=== PATIENT | male | born 1950 | race Caucasian/White ===

== ENCOUNTER 2024-02-14 09:17 | Outpatient (CLI) | payer MEDICARE, SELFPAY | END 2024-02-14 09:18 | disposition home or self-care (01) | PROVIDERS: Visit Provider Emergency Medicine | DX: I46.9 Cardiac arrest, cause unspecified (principal) | CPT/HCPCS: A0425; A0433 ==

== ENCOUNTER 2024-02-14 09:55 | Emergency (ER) | payer MEDICARE, SELFPAY ==
[2024-02-14] VITALS (12 sets, daily range): BP systolic 91–124; BP diastolic 62–83; PULSE 60–66; RESP 10–20; TEMP 35.9; O2SAT 85–88
--- NOTE | 2024-02-14 | CRLHL7_ITS ---
For Patients: As a result of the Century Cures Act, medical imaging exams and procedure reports are released immediately into your electronic medical record. You may view this report before your referring provider. If you have questions, please contact your health care provider. INDICATION: Code blue, intubation. TECHNIQUE: Chest, 2 supine views. COMPARISON: 11/12/2017. FINDINGS: Endotracheal tube terminates 7.1 cm above the anna. Advancement of 2-3 cm should be considered. No pneumothorax or pleural effusion. Bilateral ill-defined opacities, left greater than right. Mild prominence of the cardiac silhouette. Upper abdomen and osseous structures as imaged show no acute abnormality. IMPRESSION: 1. Endotracheal tube terminates 7.1 cm above the anna. Advancement of endotracheal tube by 2-3 cm should be considered. 2. Nsnj-[id number]-[id number]-right opacities concerning for edema, pneumonia or hemorrhage. Dictated by Kareem Thomas MD @ 02/14/2024 10:28:22 AM (Electronically Signed)
--- OUTSIDE RECORDS SUMMARY | 2024-02-14 09:58 | XMS_ITS | Clinical Summary ---
Author Organization [facility] Address [place], [place] [address] Care Team Providers Care Assembler Flexible Leads Name Role Phone Clinic, [facility] Primary Care Pr ovider Allergies Active Allergy Reactions Criticality Noted Date Comments Penicillin V Potassium Rash Medium 12/23/2018 Medications methotrexate (RHEUMATREX) 2.5 mg tablet Take 4 tablets by mouth once weekly. Thursday 0 12/23/2018 Active rivaroxaban (XARELTO) 10 mg tablet Patient unsure of dosing, will update next time 0 12/23/2018 Active triamterene-hyd rochlorothiazid e, 37.5-25 mg, (DYAZIDE) 37.5-25 mg capsule Patient unsure of dosing; will update next time 0 12/23/2018 Active allopurinol (ZYLOPRIM) 100 mg tablet Patient unsure of exact dosing and will update 0 12/23/2018 Active cholecalciferol (VITAMIN D) 1,000 unit capsule Take 1 capsule by mouth once daily. 0 12/23/2018 Active azithromycin (ZITHROMAX Z-LIZ) 250 mg tabletIndicatio ns:Cough Take 500 mg (2 tabs) by mouth on day 1, then 250 mg (1 tab) daily for days 2-5. 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 Gender Identity Not on file Sexual Orientation Not on file Obstetrics History Last Filed Vital Signs Vital Sign Reading Time Taken Comments Blood Pressure 131/75 12/23/2018 3:05 PM PRETZEL TWISTING MACHINE OPERATOR Pulse 93 12/23/2018 3:05 PM PRETZEL TWISTING MACHINE OPERATOR Temperature 37.1 C (98.7 F) 12/23/2018 3:05 PM PRETZEL TWISTING MACHINE OPERATOR Respiratory Rate - - Oxygen Saturation 96% 12/23/2018 3:05 PM PRETZEL TWISTING MACHINE OPERATOR Inhaled Oxygen Concentration - - Weight 86.6 kg (190 lb 14.4 oz) 12/23/2018 3:05 PM PRETZEL TWISTING MACHINE OPERATOR Height 178.5 cm (5' 10.28) 12/23/2018 3:[address] Body Mass Index 27.18 12/23/2018 3:05 PM PRETZEL TWISTING MACHINE OPERATOR Plan of Treatment Health Maintenance Due Date Last Done Comments Tdap 01/01/1960 Depression screening for age 12+ 1960 Hepatitis C screening for age 18-79 1966 Tetanus booster 1968 Colonoscopy through age 75 1993 Lipids for age 45-75 1993 Zoster (shingles) series for age 50+ (1 of 2) 12/31/18 99 Medicare Wellness for age 65+ 2013 Pneumococcal series for age 50+ (1 of 1 - PCV) 014 BMI (ht and wt on same day) for age 18+ 12/24/2019 1 02/22/2018 COVID-19 vaccine series ( - 2023-25 season) 4 Influenza for age 65+ 10/11/2023 RSV vaccine for adults or pr egnancy (1 - 1-dose 75+ series) 01/01/2024 Insurance [employer] MEDICARE ADVANTAGE MR Care Teams Assembler Flexible Leads Relationship Specialty Start Date End Date Clinic, [facility] [address] [place] [address] PCP - General 03/04/11
[2024-02-14] MEDS: 0.9 % SODIUM CHLORIDE 1000 ml 1,000 ML IV ×3 (10:02→11:03)
[2024-02-14] MEDS: KETAMINE HCL 100 MG/ML inj IV ×2 (10:03→10:28)
[2024-02-14 10:15] LABS: Basophils Percent Auto 0.3 % (0.0-3.0); Eosinophils Percent Auto 0.4 % (0.0-7.0); Hemoglobin* 13.3 gm/dL (13.5-17.5); Immature Granulocytes Pct Auto 4.3 %; Lymphocytes Percent Auto 38.1 % (20-44); Mean Corpuscular HGB Conc 31 gm/dL (32-36); Mean Corpuscular Hemoglobin 35 pg (26-34); Mean Corpuscular Volume 114 fL (80-100); Monocytes Percent Auto 6.3 % (0.0-11.0); Neutrophils Percent Auto 50.6 % (42.0-72.0); Platelet Count* 170 K/uL (140-440); Red Blood Count 3.79 m/uL (4.30-5.90); White Blood Count* 11.28 K/uL (4.50-11.00)
[2024-02-14 10:18] LABS: HCO3 VBG 17 mmol/L (21-28); PO2 VBG 47.1 mmHG (25-47)
[2024-02-14 10:20] LABS: PCO2 VBG 65 mmHG (40-50); pH VBG 7.026 (7.32-7.43)
[2024-02-14] MEDS: fentaNYL 100 MCG/2 ML inj IV (10:20)
[2024-02-14 10:24] LABS: Glucose* 261 mg/dL (60-115); Slide Review Reflex No
--- OUTSIDE RECORDS SUMMARY | 2024-02-14 10:49 | XMS_ITS | Clinical Summary ---
Author Organization [facility] Address [place], [place] [address] Care Team Providers Care Stenotype Machine Operator Name Role Phone Clinic, [facility] Primary Care Pr ovider Allergies Active Allergy Reactions Criticality Noted Date Comments Penicillin V Potassium Rash Medium 12/23/2018 Medications methotrexate (RHEUMATREX) 2.5 mg tablet Take 4 tablets by mouth once weekly. Thursday 0 9 Suspended rivaroxaban (XARELTO) 10 mg tablet Patient unsure of dosing, will update next time 0 9 Suspended triamterene-hyd rochlorothiazid e, 37.5-25 mg, (DYAZIDE) 37.5-25 mg capsule Patient unsure of dosing; will update next time 0 9 Suspended allopurinol (ZYLOPRIM) 100 mg tablet Patient unsure of exact dosing and will update 0 9 Suspended cholecalciferol (VITAMIN D) 1,000 unit capsule Take 1 capsule by mouth once daily. 0 9 Suspended azithromycin (ZITHROMAX Z-LIZ) 250 mg tabletIndicatio ns:Cough Take 500 mg (2 tabs) by mouth on day 1, then 250 mg (1 tab) daily for days 2-5. 6 tablet 9 Suspended Active Problems No known active problems Encounters Date Type Department Care Team Description 02/14/2024 10:36 AM RESIDENT CARE AID - Present Hospital Encounter [facility] [address] [place], [place] [id number] Referring, Provider [facility] [place] Hospitalists Of Arrived from Last 3 Months Family History Medical History Relation Name Comments [...] on file Legal Sex Male 5:23 AM RESIDENT CARE AID Gender Identity Not on file Sexual Orientation Not on file Obstetrics History Last Filed Vital Signs Vital Sign Reading Time Taken Comments Blood Pressure 131/75 12/23/2018 3:05 PM RESIDENT CARE AID Pulse 93 12/23/2018 3:05 PM RESIDENT CARE AID Temperature 37.1 C (98.7 F) 12/23/2018 3:05 PM RESIDENT CARE AID Respiratory Rate - - Oxygen Saturation 96% 12/23/2018 3:05 PM RESIDENT CARE AID Inhaled Oxygen Concentration - - Weight 86.6 kg (190 lb 14.4 oz) 12/23/2018 3:05 PM RESIDENT CARE AID Height 178.5 cm (5' 10.28) 12/23/2018 3:[address] Body Mass Index 27.18 12/23/2018 3:05 PM RESIDENT CARE AID Plan of Treatment Upcoming Encounters Date Type Department Care Team (Late st Contact Info) Description 02/14/2024 10:36 AM RESIDENT CARE AID - Present Hospital Encounter [facility] [address] [place] [address] Referring, Provider Mirna Andrew Hospitalists Of . Arrived Health Maintenance Due Date Last Done Comments Tdap 01/01/1960 Depression screening for age 12+ 1960 Hepatitis C screening for age 18-79 1966 Tetanus booster 1968 Colonoscopy through age 75 1993 Lipids for age 45-75 1993 Pneumococcal series for age 50+ (1 of 1 - PCV) 1998 Zoster (shingles) series for age 50+ (1 of 2) 1998 Medicare Wellness for age 65+ 2013 BMI (ht and wt on same day) for age 18+ 12/24/2019 1 02/22/2018 COVID-19 vaccine series (2023-25 season) 2023 12/02/2023, 12/24/2022 Influenza for age 65+ 10/11/2023 RSV vaccine for adults or pr egnancy (1 - 1-dose 75+ series) 01/01/2024 Insurance [facility] MEDICARE ADVANTAGE MR ATTN A/P [address] [facility] [place] [address] Care Teams Stenotype Machine Operator Relationship Specialty Start Date End Date Clinic, [facility] [address] [place] [address] PCP - General 03/04/11
--- OUTSIDE RECORDS SUMMARY | 2024-02-14 10:50 | XMS_ITS | Continuity of Care Document ---
Author Name [facility]IN User [facility] Address Unknown Organization Unknown Address Unknown Encounters FILTER APPLIED:Only known Encounters with Admission Date within the last 5 years Encounter Location Admission Discharge Billing Code Concierge Manager Attender Outpatient [facility] PROVIDER REFERRING
[2024-02-14 10:51] LABS: Chloride* 116 mmol/L (96-114); Potassium* 3.7 mmol/L (3.6-5.1); Sodium* 140 mmol/L (135-149)
[2024-02-14 10:53] LABS: Creatinine* 0.9 mg/dL (0.5-1.5); Estimated Glomerular Filt Rate 89 ml/min
[2024-02-14 10:54] LABS: Blood Urea Nitrogen* 12 mg/dL (7-30); Carbon Dioxide* 15 mmol/L (20-32); Glucose* 215 mg/dL (60-115); INR 2.32 (0.91-1.10); Prothrombin Time 27.2 Seconds
[2024-02-14 10:55] LABS: Anion Gap 9 mEq/L (7-15); Calcium* 5.3 mg/dL (8.4-10.6)
[2024-02-14 11:06] LABS: Troponin I* 0.02 ng/mL (0.01-0.04)
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
[2024-02-14 11:37] LABS: Troponin, Point-of-Care* 0.02 ng/ml (0.01-0.04)
== END 2024-02-14 11:00 | disposition short-term general hospital (02) ==
LOC: ED 10:48
PROVIDERS: Emergency Provider Emergency Medicine
DX: I95.9 Hypotension, unspecified (principal); I46.9 Cardiac arrest, cause unspecified; J96.90 Respiratory failure, unspecified, unspecified whether with hypoxia or hypercapnia; E87.20 Acidosis, unspecified
CPT/HCPCS: 36415; 71045; 80048; 82803; 82947; 83605; 84484; 85025; 85610; 93005; 96365; 96374; 99285; 99291; J0171; J0612; J3010; J3490; J7030; J7050

== ENCOUNTER 2024-02-14 10:35 | Outpatient (CLI) | payer MEDICARE, SELFPAY | END 2024-02-14 10:36 | disposition home or self-care (01) | LOC: AMB 03-18 04:36 | PROVIDERS: Visit Provider Emergency Medicine | DX: I21.9 Acute myocardial infarction, unspecified (principal); I46.9 Cardiac arrest, cause unspecified | CPT/HCPCS: A0425; A0434 ==

== ENCOUNTER 2024-03-04 13:57 | Emergency (ER) | payer MEDICARE, SELFPAY ==
[2024-03-04] VITALS (11 sets, daily range): BP systolic 128–138; BP diastolic 70–80; PULSE 62–69; RESP 22–28; TEMP 36.3; O2SAT 95–99; BMI 26.8
--- NOTE | 2024-03-04 14:19 | CRLHL7_ITS ---
For Patients: As a result of the Century Cures Act, medical imaging exams and procedure reports are released immediately into your electronic medical record. You may view this report before your referring provider. If you have questions, please contact your health care provider. INDICATION: Cough. Shortness of breath. Pacemaker placement 1 week ago. TECHNIQUE: PA and lateral chest x-ray. COMPARISON: February 14, 2024. November 12, 2017. FINDINGS: Interval extubation. New left-sided dual chamber pacemaker with its lead tips in the right atrium and right ventricle. Overall heart size is within normal limits. Clear lungs without pneumothoraces, nodules, or infiltrates. Soft tissue prominence along the right hilum. This is new compared to November 12, 2017. A reactive lymph node is in the differential. Consider follow-up chest x-ray or chest CT within 4-6 weeks. Mild spurring of the lower thoracic spine. IMPRESSION : 1. New left-sided pacemaker. No pneumothorax. 2. No acute cardiopulmonary process identified. 3. Mildly prominent right hilum possibly related to an enlarged lymph node. Consider chest x-ray or chest CT within 4-6 weeks. Dictated by Torsten Swanson MD @ 03/04/2024 2:53:04 PM (Electronically Signed)
--- NOTE | 2024-03-04 15:54 | CRLHL7_ITS ---
For Patients: As a result of the Century Cures Act, medical imaging exams and procedure reports are released immediately into your electronic medical record. You may view this report before your referring provider. If you have questions, please contact your health care provider. INDICATION: Cough, phlegm production TECHNIQUE: CT chest PE was acquired with 95 cc Isovue 370 IV contrast. COMPARISON: Same day chest radiograph FINDINGS: Supraclavicular: Unremarkable. Heart and vasculature: Contrast opacification of the pulmonary arterial tree is adequate. No sign of pulmonary embolism. Cardiomegaly. Trivessel coronary artery calcification. Left chest wall pacemaker with leads in the right ventricle and right atrial appendage. Thoracic aorta and pulmonary artery are normal in caliber. There is a 3.6 x 2.8 centimeter soft tissue density along the ascending aorta (). Lungs and pleura: Scattered areas of mild bronchial wall thickening. Minimal bibasilar atelectasis. No pneumothorax or pleural effusion. Lymph nodes/mediastinum: No mediastinal, hilar, or axillary adenopathy. Chest wall: Unremarkable. Upper abdomen: No acute or significant findings. Bones: Subacute sternal fracture likely related to prior cardiopulmonary resuscitation. Nondisplaced left 3rd, 4th, 5th, and right 2nd, 3rd, 4th, 5th, 6th subacute anterior rib fractures. IMPRESSION: No pulmonary embolism. Soft tissue density along the ascending aorta measuring 3.6 x 2.8 centimeters likely represents mediastinal hematoma, less likely mass. Consider repeat CT in 2-3 months to evaluate for interval change. Mild bronchial wall thickening can be seen with bronchitis, which may be infectious or inflammatory in etiology. Subacute sternal and anterior rib fractures likely related to recent cardiopulmonary resuscitation. Please note that all CT scans at this facility use dose modulation, iterative reconstruction, and/or weight-based dosing when appropriate to reduce radiation dose to as low as reasonably achievable. Dictated by Yarelis Alonzo MD @ 03/04/2024 6:19:41 PM (Electronically Signed)
--- NOTE | 2024-03-04 15:59 | ED.GENADULT ---
HPI - General Adult General Date Seen: 03/04/24 Chief complaint: Cough Stated complaint: Shortness of Breath, Cough Time Seen by Provider: 03/04/24 15:32 Source: patient Mode of arrival: ambulatory Limitations: no limitations History of Present Illness HPI narrative: Patient is a 73-year-old male presenting to the emergency department for a cough and intermittent shortness of breath. States the cough is producing phlegm. Of note on 02/14/2024 he presented to our emergency department in [facility] [place] was obtained and he was transferred to [place]. Was extubated 02/19/2024. While he was intubated he did have back wall and ICD placement. His fiancee states those sites seem to be healing well. He was treated for Pseudomonas and Staph in the hospital but has finished antibiotics prior to discharge him on. He states he is starting feel mildly were shortness of breath at discharge but seems to continue to progress. Is not currently on any antibiotics. States he will be doing okay and talking but he is only have a coughing fit and cannot grade. This happens whether he is sleeping down or sitting up. Is currently on blood thinners but has a history of blood clots. Does note some shortness of breath with exertion. Has not had any associated chest pain. Denies fevers, chills, headache, lightheadedness, dizziness, abdominal pain, nausea/vomiting, weakness, numbness. No other concerns noted. Related Data Home Medications ?Medication ?Instructions ?Recorded ?Confirmed allopurinol 100 mg tablet 100 mg PO DAILY 03/04/24 03/04/24 amiodarone 200 mg tablet 200 mg PO BID 03/04/24 03/04/24 apixaban 5 mg tablet (Eliquis) 5 mg PO BID 03/04/24 03/04/24 atorvastatin 20 mg tablet 20 mg PO DAILY 03/04/24 03/04/24 empagliflozin 10 mg tablet 10 mg PO DAILY 03/04/24 03/04/24 folic acid 1 mg tablet 1 mg PO DAILY 03/04/24 03/04/24 methotrexate sodium 2.5 mg tablet 10 mg PO .q4days 03/04/24 03/04/24 metoprolol succinate 25 mg 25 mg PO BID 03/04/24 03/04/24 tablet,extended release 24 hr sacubitril 24 mg-valsartan 26 mg 1 tab PO BID 03/04/24 03/04/24 tablet (Entresto) Previous Rx's ?Medication ?Instructions ?Recorded albuterol sulfate 90 mcg/actuation 2 puff inhalation Q6H PRN 03/04/24 aerosol inhaler shortness of breath or wheezing #8.5 grams azithromycin 250 mg tablet See Rx Instructions PO .COMPLEX #6 03/04/24 (Zithromax) tabs Allergies Allergy/AdvReac Type Severity Reaction Status Date / Time Penicillins Allergy Verified 03/04/24 17:05 Review of Systems Status of ROS: Reports: 10 or more systems reviewed and unremarkable except as noted in History and below [facility] Social History Smoking Status: Former smoker Do you use any of these nicotine containing products: None Second hand tobacco smoke exposure: No How often do you have a drink containing alcohol: never AUDIT-C Alcohol total score: 0 Non-prescribed substance use: denies use service: Yes Exam Narrative: Exam Narrative: Const: Well-nourished, Well-developed, in mild distress Eyes: PERRL, no conjunctival injection, and symmetrical lids HENT: Atraumatic external nose and ears. Moist mucous membranes. Neck: Symmetric, trachea midline, No thyromegaly. CVS: RRR, No murmurs or gallops. Peripheral pulses 2+ and equal in all extremities RESP: Unlabored respiratory effort. Clear to auscultation bilaterally. GI: Nontender/Nondistended, No rebound or guarding. MSK:Extremities w/o deformity, Normal Active ROM Skin: Warm, Dry. No rashes or lesions. Neuro: Normal Muscle tone, No focal neurological deficits. Psych: Awake, Alert, & Oriented x3. Appropriate mood and affect. Const: Vital Signs, click to edit/add: Vital Signs - 24 hr 03/04/24 14:04 Temperature 97.4 F L Pulse Rate [Pulse Oximeter] 67 Respiratory Rate 22 Blood Pressure [Ri ght Upper Arm] 129/71 Pulse Oximetry 97 Oxygen Delivery Me thod Room Air Course Vital Signs Vital signs: Initial Vital Signs Temperature 97.4 F L 03/04/24 14:04 Temperature Source Temporal Artery Scan 03/04/24 14:04 Pulse Rate 67 03/04/24 14:04 Pulse Rhythm Regular 03/04/24 14:04 Pulse Strength 3+ Normal 03/04/24 14:04 Respiratory Rate 22 03/04/24 14:04 Blood Pressure 129/71 03/04/24 14:04 Blood Pressure Mean 90 03/04/24 14:04 Blood Pressure Position Sitting 03/04/24 14:04 Pulse Oximetry 97 03/04/24 14:04 Oxygen Delivery Method Room Air 03/04/24 14:04 Vital Signs Temperature 97.4 F L 03/04/24 14:04 Pulse Rate 67 03/04/24 14:04 Respiratory Rate 22 03/04/24 14:04 Blood Pressure 129/71 03/04/24 14:04 Pulse Oximetry 97 03/04/24 14:04 Oxygen Delivery Method Room Air 03/04/24 14:04 Temperature 97.4 F L 03/04/24 14:04 Pulse Rate 67 03/04/24 14:04 Respiratory Rate 22 03/04/24 14:04 Blood Pressure 129/71 03/04/24 14:04 Pulse Oximetry 97 03/04/24 14:04 Oxygen Delivery Method Room Air 03/04/24 14:04 Medical Decision Making MDM Narrative Medical decision making narrative: Patient is a 73-year-old male presenting to the emergency department for a cough and gradually worsening shortness of breath. The differential diagnosis of shortness of breath is broad and includes common etiologies such as COPD, asthma, pneumonia, viral syndrome, etc. More serious etiologies considered include PE, CHF, coronary artery disease, pneumothorax, aortic dissection, aortic aneurysm. X-ray in triage showed no concerning abnormalities but concerning his history I do are better visualization with CT. With his history of blood clots will do a CTA despite currently being on a blood thinner. Will do BNP to look for signs of CHF. Will also order EKG troponin to look for cardiac abnormalities. At this time his eyes signs are stable so I consider aortic dissection and aortic aneurysm to be unlikely. Will check viral swabs. I do not hear any wheezing at this time. Lab work returned showing no concerning abnormalities. Hemoglobin is a few points lower than previously but considering all his recent medical issues this is not too surprising. BMP shows no concerning findings. BNP is slightly elevated but at this time I see no clear signs of CHF. COVID swabs are negative. Troponin within normal limits considering how long symptoms have been going on I do not believe I need to repeat the troponin. EKG shows no concerning findings. Does have a pacemaker. CTA returned showing a soft tissue density along the ascending aorta off likely a mediastinal hematoma. Recommends repeat CT in 2-3 months. Is also mild bronchial wall thickening that could be seen with bronchitis. Also some subacute start of fractures likely from the recent CPR. Considering his medical history in a to do find it beneficial treated with antibiotics for his bronchitis. Will give him a Z-Oni. His fiancee also states that he has wheezing at night I will tried albuterol inhaler. Spacer was also provided. They will be discharged in are agreeable to this plan. Lab Data Labs: Lab Results 03/04/24 03/04/24 03/04/24 Range/Units 15:54 16:30 16:40 WBC 10.72 (4.50-11.00) K/uL RBC 3.15 L (4.30-5.90) m/uL Hgb 10.1 L (13.5-17.5) gm/dL Hct 32.8 L (37.0-53.0) % MCV 104 H (80-100) fL MCH 32 (26-34) pg MCHC 31 L (32-36) gm/dL RDW Coeff of Douglas 14.5 (11.5-15.5) % Plt Count 359 (140-440) K/uL Neut % (Auto) 73.1 H (42.0-72.0) % Lymph % (Auto) 14.6 L (20-44) % Pitt % (Auto) 10.4 (0.0-11.0) % Eos % (Auto) 1.3 (0.0-7.0) % Baso % (Auto) 0.3 (0.0-3.0) % Neut # (Auto) 7.80 H (1.7-7.0) K/uL Lymph # (Auto) 1.60 (0.90-2.90) K/uL Pitt # (Auto) 1.10 H (0.00-0.90) K/UL Eos # (Auto) 0.14 (0.00-0.50) K/uL Baso # (Auto) 0.03 (0.00-0.30) K/uL Abs Immat Gran (auto) 0.03 (0.00-0.30) K/uL Imm/Tot Granulo (auto) 0.3 % Sodium 139 (135-149) mmol/L Potassium 4.3 (3.6-5.1) mmol/L Chloride 105 (96-114) mmol/L Carbon Dioxide 27 (20-32) mmol/L Anion Gap 7 (7-15) mEq/L BUN 14 (7-30) mg/dL Creatinine 0.7 (0.5-1.5) mg/dL Estimated Creat Clear 67.98 Estimated GFR 96 ml/min Glucose 96 (60-115) mg/dL Calcium 8.3 L (8.4-10.6) mg/dL NT-Pro-B Natriuret Pep 1790 pg/mL SARS-CoV-2 (PCR) Negative SARS-CoV-2 (Negative) Influenza Type A (PCR) Negative PCR FLU A (Negative) Influenza Type B (PCR) Negative PCR FLU B (Negative) RSV (PCR) Negative PCR RSV (Negative) POC Creatinine 0.9 (0.6-1.3) mg/dl POC Troponin I 0.00 L (0.01-0.04) ng/ml 03/04/24 Range/Units 16:40 WBC (4.50-11.00) K/uL RBC (4.30-5.90) m/uL Hgb (13.5-17.5) gm/dL Hct (37.0-53.0) % MCV (80-100) fL MCH (26-34) pg MCHC (32-36) gm/dL RDW Coeff of Douglas (11.5-15.5) % Plt Count (140-440) K/uL Neut % (Auto) (42.0-72.0) % Lymph % (Auto) (20-44) % Pitt % (Auto) (0.0-11.0) % Eos % (Auto) (0.0-7.0) % Baso % (Auto) (0.0-3.0) % Neut # (Auto) (1.7-7.0) K/uL Lymph # (Auto) (0.90-2.90) K/uL Pitt # (Auto) (0.00-0.90) K/UL Eos # (Auto) (0.00-0.50) K/uL Baso # (Auto) (0.00-0.30) K/uL Abs Immat Gran (auto) (0.00-0.30) K/uL Imm/Tot Granulo (auto) % Sodium (135-149) mmol/L Potassium (3.6-5.1) mmol/L Chloride (96-114) mmol/L Carbon Dioxide (20-32) mmol/L Anion Gap (7-15) mEq/L BUN (7-30) mg/dL Creatinine (0.5-1.5) mg/dL Estimated Creat Clear Estimated GFR ml/min Glucose (60-115) mg/dL Calcium (8.4-10.6) mg/dL NT-Pro-B Natriuret Pep Cancelled pg/mL SARS-CoV-2 (PCR) (Negative) Influenza Type A (PCR) (Negative) Influenza Type B (PCR) (Negative) RSV (PCR) (Negative) POC Creatinine (0.6-1.3) mg/dl POC Troponin I (0.01-0.04) ng/ml Imaging Data Chest x-ray: Attestation: I have reviewed the pertinent imaging results. Radiologist's impression: 1. New left-sided pacemaker. No pneumothorax. 2. No acute cardiopulmonary process identified. 3. Mildly prominent right hilum possibly related to an enlarged lymph node. Consider chest x-ray or chest CT within 4-6 weeks. Dictated by Torsten Swanson MD @ 03/04/2024 2:53:04 PM CTA chest: Attestation: I have reviewed the pertinent imaging results. Radiologist's impression: Soft tissue density along the ascending aorta measuring 3.6 x 2.8 centimeters likely represents mediastinal hematoma, less likely mass. Consider repeat CT in 2-3 months to evaluate for interval change. Mild bronchial wall thickening can be seen with bronchitis, which may be infectious or inflammatory in etiology. Subacute sternal and anterior rib fractures likely related to recent cardiopulmonary resuscitation. Please note that all CT scans at this facility use dose modulation, iterative reconstruction, and/or weight-based dosing when appropriate to reduce radiation dose to as low as reasonably achievable. Dictated by Yarelis Alonzo MD @ 03/04/2024 6:19:41 PM ECG Data Attestation: I personally reviewed and interpreted this ECG as follows: Prior ECG tracings: available for review Interpretation: Junctional rhythm with a ventricular paced rhythm. Rate of 63 beats per minute. Left axis deviation. No other ST or T-wave abnormalities. Main difference from the previous EKG is the new pacemaker paced rhythm. Discharge Plan Discharge Clinical Impression: Bronchitis Patient Disposition: Home, Self-Care Condition: Stable Instructions: Acute Bronchitis (ED) Additional Instructions: Take the antibiotics as needed and use the inhaler provided. Make sure when his inhaler to use the provided spacer. Return for new or worsening symptoms. Prescriptions: New azithromycin [Zithromax] 250 mg tablet See Rx Instructions .ROUTE .COMPLEX Qty: 6 0RF Rx Instructions: For 250 mg dose pack: take 500 mg today (day 1), then 250 mg for 4 days (days 2-5) albuterol sulfate 90 mcg/actuation HFA aerosol inhaler 2 puff inhalation Q6H PRN (Reason: shortness of breath or wheezing) Qty: 8.5 0RF No Action metoprolol succinate 25 mg tablet extended release 24 hr 25 mg PO BID Eliquis 5 mg tablet 5 mg PO BID sacubitril-valsartan [Entresto] 24-26 mg tablet 1 tab PO BID amiodarone 200 mg tablet 200 mg PO BID allopurinol 100 mg tablet 100 mg PO DAILY atorvastatin 20 mg tablet 20 mg PO DAILY methotrexate sodium 2.5 mg tablet 10 mg PO .q4days empagliflozin 10 mg tablet 10 mg PO DAILY folic acid 1 mg tablet 1 mg PO DAILY Follow Up/Referrals: Provider,Not a Local [Primary Care Provider] - Stand Alone Forms: [employer] Info Instructions
[2024-03-04 16:43] LABS: Creatinine, Point-of-Care* 0.9 mg/dl (0.6-1.3)
[2024-03-04 16:54] LABS: Basophils Absolute Auto 0.03 K/uL (0.00-0.30); Basophils Percent Auto 0.3 % (0.0-3.0); Eosinophils Absolute Auto 0.14 K/uL (0.00-0.50); Eosinophils Percent Auto 1.3 % (0.0-7.0); Hematocrit 32.8 % (37.0-53.0); Hemoglobin* 10.1 gm/dL (13.5-17.5); Immature Granulocytes Abs Auto 0.03 K/uL (0.00-0.30); Immature Granulocytes Pct Auto 0.3 %; Lymphocytes Percent Auto 14.6 % (20-44); Mean Corpuscular HGB Conc 31 gm/dL (32-36); Mean Corpuscular Hemoglobin 32 pg (26-34); Mean Corpuscular Volume 104 fL (80-100); Monocytes Percent Auto 10.4 % (0.0-11.0); Neutrophils Percent Auto 73.1 % (42.0-72.0); Platelet Count* 359 K/uL (140-440); RDW Coefficient of Variation % 14.5 % (11.5-15.5); Red Blood Count 3.15 m/uL (4.30-5.90); White Blood Count* 10.72 K/uL (4.50-11.00)
[2024-03-04 16:59] LABS: Slide Review Reflex No
[2024-03-04 17:05] LABS: Chloride* 105 mmol/L (96-114); Sodium* 139 mmol/L (135-149)
[2024-03-04 17:06] LABS: Potassium* 4.3 mmol/L (3.6-5.1)
[2024-03-04 17:08] LABS: Anion Gap 7 mEq/L (7-15); Carbon Dioxide* 27 mmol/L (20-32); Creatinine* 0.7 mg/dL (0.5-1.5); Est. Creatinine Clearance* 67.98; Estimated Glomerular Filt Rate 96 ml/min
[2024-03-04 17:09] LABS: Blood Urea Nitrogen* 14 mg/dL (7-30); Calcium* 8.3 mg/dL (8.4-10.6); Glucose* 96 mg/dL (60-115)
[2024-03-04 17:17] LABS: PCR FLU A Negative PCR FLU A (Negative); PCR FLU B Negative PCR FLU B (Negative); PCR RSV Negative PCR RSV (Negative); SARS PCR* Negative SARS-CoV-2 (Negative)
[2024-03-04 17:33] LABS: NT Pro B Type NatriureticPept* 1790 pg/mL
== END 2024-03-04 19:02 | disposition home or self-care (01) ==
PROVIDERS: Emergency Provider Student in an Organized Health Care Education/Training Program
DX: J40 Bronchitis, not specified as acute or chronic (principal); R06.02 Shortness of breath
CPT/HCPCS: 36415; 71046; 71275; 80048; 82565; 83880; 84484; 85025; 87631; 93005; 99284; 99285; Q9967